=== PATIENT | female | born 1955 | race Caucasian/White ===

== ENCOUNTER → 2017-07-10 14:04 | Outpatient (CLI) | payer OTHER, SELFPAY ==
--- NOTE | 2017-07-10 14:06 | BI_ITS ---
MAMMOGRAPHY - UNILATERAL DIAGNOSTIC: RIGHT BREAST REASON FOR EXAM: Female, 62 years old. Six-month follow-up of right breast nodule. PERTINENT HISTORY: Grandmother with breast cancer. Prior left stereotactic breast biopsy. TECHNIQUE: Digital unilateral breast poppy (3D mammographic acquisition) in the CC and MLO projections. 2-D mediolateral oblique (MLO) and craniocaudad (CC) views of both breasts were obtained. CAD: Full Field Digital Mammography with Computer Added Detection was performed. COMPARISON: Comparison is made with prior study October 30, 2016 and October 24, 2016. FINDINGS: Breast Composition: There are scattered areas of fibroglandular density. There are no dominant masses or suspicious calcifications. Stable 7 mm x 8 mm well-defined nodule in the upper lateral aspect of the right breast. No other significant abnormalities are identified. There has been no significant change since the prior study. BI/DIAG MAMM W/CAD, UNILAT IMPRESSION: Stable unilateral diagnostic mammogram. One year follow-up mammogram recommended. (A) ASSESSMENT CATEGORY: BIRADS Category 2: Benign. A letter regarding these results will be sent to the patient by the facility within 30 days. Approximately 10% of breast cancers are not detected by mammography. A normal mammogram should not delay biopsy of a clinically suspicious abnormality. Electronically Signed: Christopher Atkins MD at 7:48 EDT Tel [phone], Service support ,
--- NOTE | 2017-07-10 14:58 | US_ITS ---
STUDY: ULTRASOUND BREAST - RIGHT REASON FOR EXAM: Female, 62 years old. Right breast nodule. TECHNIQUE: Axial and longitudinal images of the RIGHT breast were performed with a high resolution ultrasound transducer. COMPARISON: Comparison is made with prior mammogram done earlier in the day as well as prior ultrasound dated October 30, 2016. FINDINGS: RIGHT Breast: This a 5 mm x 5 mm x 3 mm cyst at 10:00 position the breast at 7 sinus from nipple. A small axillary lymph node measuring 1 cm x 0.6 cm x 0.5 cm is seen as well. 4 mm x 5 mm x 2 mm well-defined hypoechoic nodule at the 10:00 position of breast cyst 1 cm from the nipple. This may represent a focally dilated duct. US/Breast Limited Unilateral IMPRESSION: Stable examination. Routine annual mammographic follow-up is recommended. ASSESSMENT CATEGORY: BIRADS Category 2: Benign. A letter regarding these results will be sent to the patient by the facility within 30 days. Electronically Signed: Christopher Atkins MD at 8:02 EDT Tel [phone], Service support ,
== END ==
PROVIDERS: Family Provider Internal Medicine; PCP Internal Medicine; Visit Provider Obstetrics & Gynecology
DX: R92.2 Inconclusive mammogram (principal); Z80.3 Family history of malignant neoplasm of breast
CPT/HCPCS: 76642; 77061; 77065; G0279

== ENCOUNTER → 2018-07-28 12:06 | Outpatient (CLI) | payer OTHER, SELFPAY ==
--- NOTE | 2018-07-28 12:09 | BI_ITS ---
MAMMOGRAPHY - BILATERAL SCREENING REASON FOR EXAM: Female, 63 years old. Routine annual screening examination. PERTINENT HISTORY: Grandmother with breast cancer. Remote left stereotactic breast biopsy. TECHNIQUE: Digital bilateral breast poppy (3D mammographic acquisition) in the CC and MLO projections. 2-D mediolateral oblique (MLO) and craniocaudad (CC) views of both breasts were obtained. CAD: Full Field Digital Mammography with Computer Added Detection was performed. COMPARISON: Comparison is made with prior study dated October 24, 2016 and July 10, 2017. FINDINGS: Breast Composition: There are scattered areas of fibroglandular density. There are no dominant masses or suspicious calcifications. Stable 7 mm x 8 mm well-defined nodule in the upper lateral aspect of the right breast. Prior ultrasound demonstrated this to be a small cyst. Stable appearance of the benign appearing bilateral axillary lymph nodes. No other significant abnormalities are identified. There has been no significant change since the prior study. BI/SCREENING MAMM (CAD), BILAT IMPRESSION: Stable bilateral screening mammogram. Yearly follow-up mammogram recommended. (A) ASSESSMENT CATEGORY: BIRADS Category 2: Benign. A letter regarding these results will be sent to the patient by the facility within 30 days. Approximately 10% of breast cancers are not detected by mammography. A normal mammogram should not delay biopsy of a clinically suspicious abnormality. [id number] Electronically Signed: Christopher Atkins, at 15:13 EDT , Service support ,
== END ==
PROVIDERS: Family Provider Internal Medicine; PCP Internal Medicine; Referring Provider Obstetrics & Gynecology; Visit Provider Obstetrics & Gynecology
DX: Z12.31 Encounter for screening mammogram for malignant neoplasm of breast (principal)
CPT/HCPCS: 77063; 77067

== ENCOUNTER → 2019-10-06 16:13 | Outpatient (CLI) | payer OTHER, SELFPAY ==
--- NOTE | 2019-10-06 16:16 | BI_ITS ---
MAMMOGRAPHY - BILATERAL SCREENING REASON FOR EXAM: Female, 64 years old. Routine annual screening examination. PERTINENT HISTORY: Grandmother with breast cancer. Prior left stereotactic breast biopsy. TECHNIQUE: Digital bilateral breast christi (3D mammographic acquisition) in the CC and MLO projections. 2-D mediolateral oblique (MLO) and craniocaudad (CC) views of both breasts were obtained. CAD: Full Field Digital Mammography with Computer Added Detection was performed. COMPARISON: Comparison is made with prior examination dated July 28, 2018 and July 10, 2017. FINDINGS: Breast Composition: There are scattered areas of fibroglandular density. There are no dominant masses or suspicious calcifications. Stable 7 mm x 8 mm well-defined nodule in the axillary region of the right breast. This most likely represents a small lymph node. There is a 5.8 mm x 5 mm nodule in the deep slightly upper aspect of the left breast. Correlation with ultrasound is recommended. No other significant abnormalities are identified. BI/SCREEN MAMM (CAD) W/CHRISTI BILAT IMPRESSION: There is a new 5.8 mm nodular density in the deep slightly upper aspect of the left breast. Correlation with ultrasound is recommended. ASSESSMENT CATEGORY: BIRADS Category 0: Incomplete. Need additional imaging evaluation. A letter regarding these results will be sent to the patient by the facility within 30 days. Approximately 10% of breast cancers are not detected by mammography. A normal mammogram should not delay biopsy of a clinically suspicious abnormality. [id number] Electronically Signed: Christopher Atkins, at 8:21 EDT , Service support ,
== END ==
PROVIDERS: PCP Internal Medicine; Referring Provider Obstetrics & Gynecology; Visit Provider Obstetrics & Gynecology
DX: Z12.31 Encounter for screening mammogram for malignant neoplasm of breast (principal)
CPT/HCPCS: 77063; 77067

== ENCOUNTER → 2019-10-12 10:56 | Outpatient (CLI) | payer OTHER, SELFPAY ==
--- NOTE | 2019-10-12 10:58 | US_ITS ---
STUDY: ULTRASOUND BREAST - LEFT REASON FOR EXAM: Female, 64 years old. Abnormal screening mammogram. TECHNIQUE: Axial and longitudinal images of the LEFT breast were performed with a high resolution ultrasound transducer. # OF IMAGES: 29 COMPARISON: Comparison is made with prior mammogram dated October 06, 2019. FINDINGS: LEFT Breast: The mammographic abnormality corresponds to a 4 mm x 5 mm x 3 mm cyst at the 12:00 position of the breast at 4 cm from the nipple. US/Breast Limited Unilateral IMPRESSION: The mammographic and amount to correspond to a 4 mm x 5 mm x 3 mm cyst at the 12:00 position of the breast at 4 cm from the nipple. ASSESSMENT CATEGORY: BIRADS Category 2: Benign. A letter regarding these results will be sent to the patient by the facility within 30 days. Electronically Signed: Christopher Atkins, at 15:54 EDT , Service support ,
== END ==
PROVIDERS: PCP Internal Medicine; Referring Provider Obstetrics & Gynecology; Visit Provider Obstetrics & Gynecology
DX: R92.8 Other abnormal and inconclusive findings on diagnostic imaging of breast (principal)
CPT/HCPCS: 76642

== ENCOUNTER → 2020-02-06 17:11 | Outpatient (CLI) | payer OTHER, SELFPAY ==
[2020-02-13 04:35] LABS: HPV APTIMA, High Risk Negative (Negative)
[2020-02-13 04:36] LABS: HPV Reflexed? NOT INDICATED
== END ==
PROVIDERS: PCP Internal Medicine; Visit Provider Student in an Organized Health Care Education/Training Program
DX: Z12.4 Encounter for screening for malignant neoplasm of cervix (principal)
CPT/HCPCS: 88175; G0145

== ENCOUNTER → 2020-02-21 16:54 | Outpatient (CLI) | payer OTHER, SELFPAY ==
--- NOTE | 2020-02-21 16:05 | EMB_PTH ---
PATIENT: ML TAFOYA LOC: [facility] U#:[id number] AGE/SX: 69/F ROOM: RE02/21/[address]: Dr. Rachael Brady, : 1955 BED: DIS: SPEC #: [id number] RECD: 02/21/20 17:10 STATUS: SHANTI RE #: [id number] RAMIRO: 02/21/20 16:[address]: Rachael Brady DEPT: SURGICAL PATHOLOGY RECD BY: Hyacinth Steinberg ENTERED: 02/22/20 06:54 SP TYPE: ENDOM BX/C TASHI DR: Dr. Maddison Sotelo MD Tissues: Endometrium, NOS Procedures: Surgery Specimen Level IV HEADER OPERATION: Endometrial biopsy PRE-OP DIAGNOSIS: Postmenopausal bleeding TISSUE SUBMITTED: Endometrial biopsy MICROSCOPIC DIAGNOSIS Endometrial biopsy: Strips of benign endometrial epithelium, consistent with atrophic endometrium. Fragments of benign ecto- and endocervical epithelium. SJ:altaf 11/27/20 MICROSCOPIC DESCRIPTION Slides are reviewed. GROSS DESCRIPTION Received in fixative is one container labeled with the patient's name and designated endometrial biopsy. The specimen consists of multiple irregular fragments of castillo-pink soft tissue mixed with mucoid tissue that in aggregate measure 2.5 x 2 x 0.2 cm. The specimen is totally submitted in one cassette. / SJ:altaf 02/22/20 TC:4 CPT: 48541
== END ==
PROVIDERS: PCP Internal Medicine; Visit Provider Student in an Organized Health Care Education/Training Program
DX: N95.0 Postmenopausal bleeding (principal)
CPT/HCPCS: 88305

== ENCOUNTER → 2020-03-09 10:44 | Outpatient (CLI) | payer OTHER, SELFPAY ==
--- NOTE | 2020-03-09 10:47 | US_ITS ---
STUDY: THYROID ULTRASOUND REASON FOR EXAM: Female, 64 years old. nodules TECHNIQUE: Ultrasound evaluation of the thyroid was performed with real-time and static calderon-scale imaging. COMPARISON: 06/10/2016 FINDINGS: RIGHT LOBE: The right lobe of the thyroid gland measures 5.3 x 1.5 x 1.5 cm. There is a homogeneous echotexture. Nodule 1: No change in a 10 x 7 x 9 mm solid hypoechoic wider than tall smoothly marginated nodule with no echogenic foci (TR 4) in the right lobe consistent with an adenoma. LEFT LOBE: The left lobe of the thyroid gland measures 5.4 x 1.6 x 1.2 cm. There is a homogeneous echotexture. Nodule 2: No change in the 6 x 5 x 6 mm solid hypoechoic wider than tall smoothly marginated nodule with no echogenic foci (TR 4) in the mid left lobe consistent with an adenoma. Nodule 3: No change in a 4 x 3 x 3 mm solid hypoechoic wider than tall smoothly marginated nodule with no echogenic foci (TR 4) (in the anterior left lobe consistent with an adenoma. ISTHMUS: The isthmus measures 4 mm thick. . The regional lymph nodes are normal. US/Thyroid IMPRESSION: No change in multinodular thyroid gland. Electronically Signed: Ed Ayoub MD at 9:26 EST Tel , Service support ,
== END ==
PROVIDERS: PCP Internal Medicine; Referring Provider Internal Medicine Endocrinology, Diabetes & Metabolism; Visit Provider Internal Medicine Endocrinology, Diabetes & Metabolism
DX: E04.2 Nontoxic multinodular goiter (principal)
CPT/HCPCS: 76536

== ENCOUNTER 2021-06-18 12:46 | Outpatient (CLI) | payer OTHER, SELFPAY ==
--- NOTE | 2021-06-18 12:50 | BI_ITS ---
MAMMOGRAPHY - BILATERAL SCREENING 3-D TOMOSYNTHESIS REASON FOR EXAM: Female, 66 years old. SCREENING PERTINENT HISTORY: No significant family history. TECHNIQUE: 2-D mammograms and 3-D Tomosynthesis of the breast (s) were performed. CAD was performed. COMPARISON: 10/06/2019 FINDINGS: The breast composition is composed of scattered fibroglandular density. Scattered benign calcifications are seen. No dense spiculated masses or suspicious microcalcifications are identified. No architectural distortion is identified. There is no skin thickening or retraction. There has been no significant change since the prior study. BI/SCRN MAMM (CAD)W/CHRISTI BILAT IMPRESSION: No mammographic signs of malignancy. Routine yearly mammograms recommended. ASSESSMENT CATEGORY: BIRADS Category 1: Negative. A letter regarding these results will be sent to the patient by the facility within 30 days. FOLLOW UP RECOMMENDATION: Yearly follow up mammogram recommended. (A) Approximately 10% of breast cancers are not detected by mammography. A normal mammogram should not delay biopsy of a clinically suspicious abnormality. Electronically Signed: Ed Ayoub MD at 14:11 EDT ,
== END 2021-06-18 23:59 | disposition home or self-care (01) ==
LOC: OPBI 12:47
PROVIDERS: PCP Internal Medicine; Visit Provider Student in an Organized Health Care Education/Training Program
DX: Z12.31 Encounter for screening mammogram for malignant neoplasm of breast (principal)
CPT/HCPCS: 77063; 77067

== ENCOUNTER → 2022-06-16 | Outpatient (CLI) | payer OTHER, SELFPAY ==
[2022-06-23 10:28] LABS: HPV APTIMA, High Risk Negative (Negative)
== END | disposition home or self-care (01) ==
LOC: LABSPEC 13:47
PROVIDERS: PCP Internal Medicine; Visit Provider Student in an Organized Health Care Education/Training Program
DX: Z12.4 Encounter for screening for malignant neoplasm of cervix (principal)
CPT/HCPCS: 87624; 88175; G0145

== ENCOUNTER → 2022-06-27 | Outpatient (CLI) | payer OTHER, SELFPAY ==
--- NOTE | 2022-06-27 10:23 | BI_ITS ---
MAMMOGRAPHY - BILATERAL SCREENING REASON FOR EXAM: Female, 67 years old. Routine annual screening examination. PERTINENT HISTORY: Grandmother with breast cancer. History of prior bilateral breast aspirations. TECHNIQUE: Digital bilateral breast christi (3D mammographic acquisition) in the CC and MLO projections. 2-D mediolateral oblique (MLO) and craniocaudad (CC) views of both breasts were obtained. CAD: Full Field Digital Mammography with Computer Added Detection was performed. COMPARISON: Comparison is made with prior study dated June 18, 2021 and October 06, 2019. FINDINGS: Breast Composition: There are scattered areas of fibroglandular density. There are no dominant masses or suspicious calcifications. Stable small bilateral benign appearing axillary lymph nodes. Stable 7 mm x 8 mm well-defined nodular neck surgery in the right breast. No other significant abnormalities are identified. There has been no significant change since the prior study. BI/SCRN MAMM (CAD)W/CHRISTI BILAT IMPRESSION: Stable bilateral screening mammogram. Yearly follow-up mammogram recommended. (A) ASSESSMENT CATEGORY: BIRADS Category 2: Benign. A letter regarding these results will be sent to the patient by the facility within 30 days. Approximately 10% of breast cancers are not detected by mammography. A normal mammogram should not delay biopsy of a clinically suspicious abnormality. [id number] Electronically Signed: Christopher Atkins MD at 12:01 EDT ,
== END | disposition home or self-care (01) ==
LOC: OPBI 10:17
PROVIDERS: PCP Internal Medicine; Visit Provider Student in an Organized Health Care Education/Training Program
DX: Z12.31 Encounter for screening mammogram for malignant neoplasm of breast (principal); Z80.3 Family history of malignant neoplasm of breast
CPT/HCPCS: 77063; 77067

== ENCOUNTER → 2023-07-21 | Outpatient (CLI) | payer MEDICARE, SELFPAY ==
--- NOTE | 2023-07-21 09:02 | BI_ITS ---
MAMMOGRAPHY - BILATERAL SCREENING REASON FOR EXAM: Female, 68 years old. Routine annual screening examination. PERTINENT HISTORY: Grandmother with breast cancer. Prior left stereotactic breast biopsy. TECHNIQUE: Digital bilateral breast christi (3D mammographic acquisition) in the CC and MLO projections. 2-D mediolateral oblique (MLO) and craniocaudad (CC) views of both breasts were obtained. CAD: Full Field Digital Mammography with Computer Added Detection was performed. COMPARISON: Comparison is made with prior study June 27, 2022 and June 18, 2021. FINDINGS: Breast Composition: There are scattered areas of fibroglandular density. There are no dominant masses or suspicious calcifications. Stable 7 mm x 8 mm well-defined nodule in the axillary region of the right breast suggestive of a small lymph node. Benign-appearing lymph nodes are seen in both axillary regions. No other significant abnormalities are identified. There has been no significant change since the prior study. BI/SCRN MAMM (CAD)W/CHRISTI BILAT IMPRESSION: Stable bilateral screening mammogram. Yearly follow-up mammogram recommended. (A) ASSESSMENT CATEGORY: BIRADS Category 2: Benign. A letter regarding these results will be sent to the patient by the facility within 30 days. Approximately 10% of breast cancers are not detected by mammography. A normal mammogram should not delay biopsy of a clinically suspicious abnormality. [id number] Electronically Signed: Christopher Atkins MD at 11:06 EDT ,
== END | disposition home or self-care (01) ==
LOC: OPBI 09:00
PROVIDERS: PCP Internal Medicine; Referring Provider Internal Medicine; Visit Provider Internal Medicine
DX: Z12.31 Encounter for screening mammogram for malignant neoplasm of breast (principal); Z80.3 Family history of malignant neoplasm of breast
CPT/HCPCS: 77063; 77067

== ENCOUNTER → 2023-12-09 | Outpatient (CLI) | payer MEDICARE, SELFPAY ==
--- NOTE | 2023-12-09 08:27 | US_ITS ---
STUDY: THYROID ULTRASOUND REASON FOR EXAM: Female, 68 years old. NONTOXIC MULTINODULAR GOITER TECHNIQUE: Ultrasound evaluation of the thyroid was performed with real-time and static calderon-scale imaging. COMPARISON: Thyroid ultrasound dated March 09, 2020 FINDINGS: RIGHT LOBE: The right lobe of the thyroid gland measures 5.2 x 1.8 x 1.6 cm, previously measuring 5.3 x 1.5 x 1.5 cm. There is a heterogeneous echotexture. Redemonstration of diffuse nodularity and heterogeneity and coarsening throughout the thyroid parenchyma consistent with multinodular goiter. Stable dominant nodule which is debris-filled but avascular in the mid aspect of the lobe measuring 1 cm. LEFT LOBE: The left lobe of the thyroid gland measures 5.5 x 1.6 x 1.6 cm, previously measuring 5.4 x 1.6 x 1.2 cm. There is a heterogeneous echotexture. Redemonstration of diffuse nodularity and heterogeneity and coarsening throughout the thyroid parenchyma consistent with multinodular goiter. ISTHMUS: The isthmus measures 4 mm. US/Thyroid IMPRESSION: 1. Multinodular goiter 2. TR2: 2 points = not suspicious ACR Thyroid Imaging Reporting and Data System (ACR TI-RADS) Reference: COMPOSITION (choose 1): Cystic or almost completely cystic - 0 points Spongiform- 0 points Mixed cystic and solid - 1 point Solid almost completely solid - 2 points ECHOGENICITY (choose 1): Anechoic space - 0 points Hyperechoic or isoechoic-1 point Hypoechoic-2 points Very hypoechoic-3 points SHAPE (choose 1): : Wider than tall-0 points Taller than wide-3 points MARGINS ( smooth, lobular, ill-defined) ECHOGENIC FOCI (macro or microcalcifications) Scoring and classification TR1: 0 points = benign TR2: 2 points = not suspicious TR3: 3 points = mildly suspicious TR4: 4-6 points = moderately suspicious TR5: ?7 points = highly suspicious Recommendations TR1: no FNA required TR2: no FNA required TR3: ?1.5 cm follow up, ?2.5 cm FNA = follow up: 1, 3 and 5 years TR4: ?1.0 cm follow up, ?1.5 cm FNA = follow up: 1, 2, 3 and 5 years TR5: ?0.5 cm follow up, ?1.0 cm FNA = annual follow up for up to 5 years FNA biopsy is recommended for suspicious lesions (TR3-TR5) with the above size criteria. If there are multiple nodules, the two with the highest ACR TI-RADS scores should be sampled (rather than the two largest), with largest size being used a tie-breaker if there are multiple nodules of the same classification. Electronically Signed: Heriberto Cordova MD at 12:50 EDT Reading Location ID and State: [address] [place] [address] , Service support ,
== END | disposition home or self-care (01) ==
PROVIDERS: PCP Internal Medicine; Referring Provider Internal Medicine Endocrinology, Diabetes & Metabolism; Visit Provider Internal Medicine Endocrinology, Diabetes & Metabolism
DX: E04.2 Nontoxic multinodular goiter (principal)
CPT/HCPCS: 76536

== ENCOUNTER → 2024-07-22 | Outpatient (CLI) | payer MEDICARE, SELFPAY ==
--- NOTE | 2024-07-22 09:40 | BI_ITS ---
EXAM: SCRN MAMM (CAD)W/CHRISTI BILAT 07/22/2024 CLINICAL HISTORY: F, Age 69 y/o , SCREENING TECHNIQUE: Bilateral screening digital breast tomosynthesis with 2D and 3D images. Computer aided detection. COMPARISON: Prior exam(s) dated 07/21/2023, 06/27/2022. FINDINGS: TISSUE DENSITY: The breast tissue is composed of scattered area of fibroglandular density. Bilateral Breast Mammographic Findings: No significant masses, calcifications or other abnormalities are identified. BI/SCRN MAMM (CAD)W/CHRISTI BILAT IMPRESSION: Right Breast: BIRADS 1 NEGATIVE. Left Breast: BIRADS 1 NEGATIVE. OVERALL FINAL ASSESSMENT: BIRADS 1 NEGATIVE. RECOMMENDATION: Routine annual follow-up in 1 Year A letter with findings and recommendations will be mailed to the patient. Reading Location: [id number]
== END | disposition home or self-care (01) ==
LOC: OPBI 09:38
PROVIDERS: PCP Internal Medicine; Referring Provider Internal Medicine; Visit Provider Internal Medicine
DX: Z12.31 Encounter for screening mammogram for malignant neoplasm of breast (principal)
CPT/HCPCS: 77063; 77067